=== PATIENT | female | born 1950 | race Caucasian/White ===

== ENCOUNTER 2016-07-21 12:40 | Emergency (ER) | payer OTHER ==
[~2016-07-21] VITALS: Ht 162.6 cm; Wt 90.7 kg
[~2016-07-21 12:40] MED LIST: CYMBALTA20 MG PO; IBUPROFEN600 MG ORAL; NKM; NORCO 5-325 TA1 EACH ORAL; PREMARIN0.625 MG ORAL; RISPERDAL1 MG PO; RISPERDAL1 MG/1 ML PO; VICODIN 5-5001 EACH PO; [UNRECOGNIZED DRUG - OTHER] PO; premarin
[2016-07-21 12:45] VITALS: BP 126/74
[2016-07-21] MEDS ORDERED: CYMBALTA60 MG ORAL (12:51)
[2016-07-21] MEDS ORDERED: GABAPENTIN100 MG ORAL (12:51)
[2016-07-21] MEDS ORDERED: Lidocaine 2% Visc 15ml soln ORAL ONE (13:30)
--- NOTE | 2016-07-21 13:43 | Emergency Room Report ---
History of Present Illness General Chief Complaint: Sore Throat Source: Patient (Kristin Moulton) Present Illness HPI 66-year-old female presents to emergency Department complaining of 10/10 in severity sore throat and abdominal discomfort status post endoscopy yesterday. Patient describes her pain as burning and discomfort. Patient denies blood in the sputum or black tarry stools. Patient that she recently was diagnosed with hiatal hernia and denies taking medications for acid reflux. Patient states that prior she was taking only omeprazole with mild relief. Patient denies difficulty breathing or painful inspirations. Denies CP, Palpitations, LOC, AMS , dizziness, Changes in Vision, Sensation, paresthesias, or a sudden severe headache. (Kristin Moulton) Allergies: Coded Allergies: SULFA (SULFONAMIDE ANTIBIOTICS) (Verified Allergy, Intermediate, rash, ) Patient History Past Medical History: see triage record Past Surgical History: none Pertinent Family History: none Immunizations: UTD Reviewed Nursing Documentation: PMH: Agreed, PSxH: Agreed (Kristin Moulton) Nursing Documentation-PMH Past Medical History: No History, Except For Hx Cardiac Problems: No - Herpes Hx Asthma: Yes Hx COPD: Yes Hx Cancer: Yes - SKIN BASAL CELL IN FACE Hx Gastrointestinal Problems: Yes - GERD Hx Neurological Problems: No (Kristin Moulton) Review of Systems All Other Systems: negative except mentioned in HPI (Kristin Moulton) Physical Exam Vital Signs Date Time Temp Pulse Resp B/P Pulse Ox O2 Delivery O2 Flow Rate FiO2 07/21/16 12:45 98.6 85 16 126/74 99 Room Air Sp02 EP Interpretation: reviewed, normal General Appearance: no apparent distress, alert, GCS 15, non-toxic Head: normocephalic, atraumatic Eyes: bilateral eye PERRL, bilateral eye normal inspection ENT: hearing grossly normal, normal pharynx, no angioedema, normal voice Neck: full range of motion, supple/symm/no masses Respiratory: chest non-tender, lungs clear, normal breath sounds, speaking full sentences Cardiovascular #1: regular rate, rhythm, no edema Gastrointestinal: normal bowel sounds, non tender, soft, no guarding, no rebound Rectal: deferred Genitourinary: normal inspection, no CVA tenderness Musculoskeletal: back normal, gait/station normal, normal range of motion, non- tender, no calf tenderness Neurologic: alert, oriented x3, responsive, motor strength/tone normal, sensory intact, speech normal Psychiatric: judgement/insight normal, memory normal, mood/affect normal, no suicidal/homicidal ideation Skin: normal color, no rash, warm/dry, well hydrated Lymphatic: no adenopathy (Kristin Moulton) Medical Decision Making MD Attestation Dr. jarquin is my supervising Physician whom patient management has been discussed with. (Kristin Moulton) Medicare Attestation The history of Souleymane Sanches has been reviewed and management options for her have been examined and discussed by Keyur Ladd. I have personally examined and interviewed the patient. (KEYUR LADD M.D.) Diagnostic Impression: Primary Impression: Hiatal hernia with GERD and esophagitis ER Course 66-year-old female presents to emergency Department complaining of 10/10 in severity sore throat and abdominal discomfort status post endoscopy yesterday. Patient describes her pain as burning and discomfort. Patient denies blood in the sputum or black tarry stools. Patient that she recently was diagnosed with hiatal hernia and denies taking medications for acid reflux. Patient states that prior she was taking only omeprazole with mild relief. Patient denies difficulty breathing or painful inspirations Ddx considered but are not limited to pneumomediastinum, perforation, GERD, SE of procedure. Vital signs: are WNL, pt. is afebrile H&PE are most consistent with GERD and Hiatal hernia with discomfort s/p endoscopy ORDERS: -- CXR: no evidence of pneumomediastinum, No consolidation, effusion, pneumothorax or acute cardiopulmonary findings per soft read in ED by Dr. Ladd ED INTERVENTIONS: -Viscous Lidocaine 10mg -150mg Zantac DISCHARGE: At this time pt. is stable for d/c to home. Will provide printed patient care instructions, and any necessary prescriptions. Care plan and follow up instructions have been discussed with the patient prior to discharge. (Kristin Moulton) Last Vital Signs Date Time Temp Pulse Resp B/P Pulse Ox O2 Delivery O2 Flow Rate FiO2 07/21/16 12:45 98.6 85 16 126/74 99 Room Air (Kristin Moulton) Disposition: HOME, SELF-CARE Condition: Stable Scripts Ranitidine Hcl* (ZANTAC*) 150 Mg Tablet 150 MG ORAL TWICE A DAY for 30 Days, #60 TAB Prov: Kristin Moulton 07/21/16 Lidocaine HCl (Lidocaine HCl Viscous) 100 Ml Solution 15 ML PO TID, #200 ML Prov: Kristin Moulton 07/21/16 Patient Instructions: Food Choices for Gastroesophageal Reflux Disease, Adult, [id number], Hiatal Hernia Additional Instructions: Take medications as directed. Follow up with PCP in 3-5 days Return sooner to ED if new symptoms occur, or current symptoms become worse. - Please note that this Emergency Department Report was dictated using [employer] custodian technology software, occasionally this can lead to erroneous entry secondary to interpretation by the dictation equipment. Kristin Moulton Jul 21, 2016 13:43 KEYUR LADD M.D. Jul 22, 2016 08:21
[2016-07-21] MEDS ORDERED: ZANTAC150 MG ORAL (13:46)
[2016-07-21] MEDS ORDERED: LIDOCAINE VISCO20 ML PO (13:46)
[2016-07-21 14:00] VITALS: BP 118/67
--- NOTE | 2016-07-22 10:00 | Diagnostic Imaging Report ---
Indication: Chest pain Technique: XRAY CHEST 1 V Comparison: None Findings: Cardiac silhouette is prominent. There is no consolidation. Mild linear opacities are noted of the mid and basilar lung rivera. Chronic appearing left-sided rib fracture deformities are present. Degenerative changes of the spine are seen. Impression: Mild linear opacities of the mid and lower lung rivera could represent atelectasis. Clinical correlation/followup recommended. Other findings as above.
== END 2016-07-21 14:04 | disposition home or self-care (01) ==
LOC: EMR 13:00
DX: K44.9 Diaphragmatic hernia without obstruction or gangrene (principal); K21.0 Gastro-esophageal reflux disease with esophagitis
CPT/HCPCS: 71010; 99283

== ENCOUNTER 2016-08-19 14:57 | Emergency (ER) | payer MEDICARE, OTHER ==
[~2016-08-19] VITALS: Ht 160 cm; Wt 48.5 kg
[~2016-08-19 14:57] MED LIST changes: +CYMBALTA60 MG ORAL; +GABAPENTIN100 MG ORAL; +LIDOCAINE VISCO20 ML PO; +ZANTAC150 MG ORAL
[2016-08-19 15:45] VITALS: BP 120/61
[2016-08-19] MEDS ORDERED: Albuterol ud Inhalation HHN ONE (15:45)
[2016-08-19] MEDS ORDERED: Ipratropium 0.02% Inh Soln 2.5ml UD HHN ONE (15:45)
[2016-08-19] MEDS ORDERED: ZITHROMAX250 MG ORAL (17:32)
[2016-08-19] MEDS ORDERED: PROMETHAZINE-D118 ML ORAL (17:32)
[2016-08-19] MEDS ORDERED: PROAIR HFA8.5 GM INH (17:32)
[2016-08-19] MEDS ORDERED: PREDNISONE20 MG ORAL (17:33)
[2016-08-19 17:38] VITALS: BP 123/70
--- NOTE | 2016-08-19 21:26 | Emergency Room Report ---
History of Present Illness General Chief Complaint: Upper Respiratory Illness Source: Patient Present Illness [facility] The patient is a 66-year-old female presenting for cough and sore throat for the past week. The patient states she has a history of chronic bronchitis and a history of smoking. She describes pain as a 5-10 dull ache and is worse with coughing. Patient does admit to subjective fevers and chills. the patient denies any sick contacts or recent travel. The patient has been using albuterol at home which does help. 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 Hx Gastrointestinal Problems: Yes - GERD Hx Neurological Problems: No Review of Systems All Other Systems: negative except mentioned in HPI Physical Exam Vital Signs Date Time Temp Pulse Resp B/P Pulse Ox O2 Delivery O2 Flow Rate FiO2 08/19/16 15:33 97.9 87 16 128/65 100 Room Air Sp02 EP Interpretation: reviewed, normal General Appearance: no apparent distress, alert, GCS 15, non-toxic Head: normocephalic, atraumatic Eyes: bilateral eye PERRL, bilateral eye normal inspection ENT: hearing grossly normal, normal pharynx, no angioedema, normal voice, uvula midline Neck: full range of motion, supple/symm/no masses Respiratory: no respiratory distress, no accessory muscle use, wheezing - bilat Cardiovascular #1: regular rate, rhythm, no edema Genitourinary: normal inspection, no CVA tenderness Musculoskeletal: back normal, gait/station normal, normal range of motion, non- tender Neurologic: alert, oriented x3, responsive, motor strength/tone normal, sensory intact, speech normal Psychiatric: judgement/insight normal, memory normal, mood/affect normal, no suicidal/homicidal ideation Skin: normal color, no rash, warm/dry, well hydrated Lymphatic: no adenopathy Medical Decision Making PA Attestation Dr. Sahni is my supervising physician. Patient management was discussed with my supervising physician Diagnostic Impression: Primary Impression: Bronchitis ER Course The patient is a 66-year-old female presenting for cough and sore throat for the past week Differential diagnosis include but not limited to pharyngitis, sinusitis, AOM, bronchitis, PNA PE: No apparent distress. No TTP over maxillary or frontal sinuses. Lungs: + bilat wheezing. No accessory muscle use. Heart: RRR, no abnormal heart sounds Ears: external auditory canal clear. Non erythematous. Bilat TM intact. Cone of light present bilat. No bulging of TM. No serous fluid seen. no nasal D/C no anterior cervical lymphad No tonsillar exudate. Uvula midline.Oropharynx non erythematous The patient is given a breathing treatment and Decadron and is feeling better. CXR shows RLL possible atelectasis vs effusion The patient will be discharged home with a prescription for azithromycin, albuterol, prednisone and cough medication. ER precautions given Chest X-Ray Diagnostic Results EP Interpretation: Yes Findings: no pneumothorax, other - RLL atelectasis vs effusion Number of Views: 1 PA Scribe Text I am acting as scribe for my supervising physician. My supervising physician's interpretation of the chest xrays are there is RLL atelectasis vs effusion. Last Vital Signs Date Time Temp Pulse Resp B/P Pulse Ox O2 Delivery O2 Flow Rate FiO2 08/19/16 16:20 79 18 100 Room Air 08/19/16 15:33 97.9 128/65 Status: improved Disposition: HOME, SELF-CARE Condition: Improved Scripts Prednisone* (PREDNISONE*) 20 Mg Tablet 20 MG ORAL DAILY, #5 TAB 0 Refills Prov: TERZIAN,DEMAR P.A. 08/19/16 D-Methorphan Hb/Prometh Hcl* (PROMETHAZINE-DM SYRUP*) 118 Ml Syrup 5 ML ORAL Q6H Y for For Cough, #118 ML 0 Refills Prov: TERZIAN,DEMAR P.A. 08/19/16 Albuterol Sulfate* (PROAIR HFA*) 8.5 Gm Hfa.aer.ad 2 PUFFS INH Q6H, #8.5 GM 0 Refills Prov: TERZIAN,DEMAR P.A. 08/19/16 Azithromycin* (ZITHROMAX*) 250 Mg Tablet 250 MG ORAL DAILY, #6 TAB 0 Refills Take two tables once daily for 1 day, then one tablet once daily for 4 days. Prov: DEMAR ALEXANDER 08/19/16 Referrals: [facility],REFERRING (PCP) Patient Instructions: Acute Bronchitis Additional Instructions: I discussed my findings with the patient. All questions and concerns have been answered. Treatment and medication compliance have been addressed. I advised the patient that they need to follow up with PMD in 3-5 days. Return to ED if pain remains or worsens, cough worsens or remains, you notice blood in your sputum, you notice wheezing, you experience a fever, or if needed for any reason. Patient verbalized understanding of discharge instructions. DEMAR ALEXANDER Aug 19, 2016 21:26
--- NOTE | 2016-08-20 12:19 | Diagnostic Imaging Report ---
Indication: COUGH Technique: One view of the chest Comparison: 07/21/2016 Findings: Lungs and pleural spaces are clear. Heart size is upper limits of normal. Aorta is elongated. When compared to the prior study, previously demonstrated atelectatic changes are no longer evident Impression: No acute process
== END 2016-08-19 17:38 | disposition home or self-care (01) ==
LOC: EMR 15:55
DX: J40 Bronchitis, not specified as acute or chronic (principal); J44.9 Chronic obstructive pulmonary disease, unspecified; Z85.828 Personal history of other malignant neoplasm of skin; K21.9 Gastro-esophageal reflux disease without esophagitis; Z88.2 Allergy status to sulfonamides
CPT/HCPCS: 71010; 94640; 94664; 99284; J8540

== ENCOUNTER 2016-10-21 10:37 | Emergency (ER) | payer MEDICARE, OTHER ==
[~2016-10-21] VITALS: Ht 160 cm; Wt 88.5 kg
[~2016-10-21 10:37] MED LIST changes: +PREDNISONE20 MG ORAL; +PROAIR HFA8.5 GM INH; +PROMETHAZINE-D118 ML ORAL; +ZITHROMAX250 MG ORAL
[2016-10-21 10:44] VITALS: BP 113/65
--- NOTE | 2016-10-21 11:51 | Emergency Room Report ---
History of Present Illness General Chief Complaint: Lower Extremity Injury Source: Patient Present Illness HPI [id number] walk-in with pain to right little toe after "stubbing it" barefoot 2 days ago after "some drinking." Able to ambulate. No previous foot/toe injury. 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 Hx Gastrointestinal Problems: Yes - GERD Hx Neurological Problems: No Review of Systems All Other Systems: negative except mentioned in HPI Physical Exam Vital Signs Date Time Temp Pulse Resp B/P Pulse Ox O2 Delivery O2 Flow Rate FiO2 10/21/16 10:44 96.3 73 16 113/65 93 Room Air Sp02 EP Interpretation: reviewed, normal General Appearance: normal inspection, well appearing, no apparent distress, alert Head: normocephalic, atraumatic ENT: normal ENT inspection, hearing grossly normal, normal voice Neck: normal inspection, full range of motion, supple, no bony tend Respiratory: normal inspection, lungs clear, normal breath sounds, no respiratory distress, no retraction, no wheezing Cardiovascular #1: regular rate, rhythm, no edema Gastrointestinal: normal inspection, normal bowel sounds, non tender, soft, no guarding, no hernia Genitourinary: no CVA tenderness Musculoskeletal: other - right fifth foot: mild swelling to PIP. Sensation intact. No obvious deformity, Neurologic: normal inspection, alert, oriented x3, responsive, it integration architect III-XII nml as tested, motor strength/tone normal, speech normal Psychiatric: normal inspection, judgement/insight normal, mood/affect normal Skin: normal inspection, normal color, no rash Medical Decision Making Diagnostic Impression: Primary Impression: Broken toe Qualified Codes: S92.514A - Nondisplaced fracture of proximal phalanx of right lesser toe(s), initial encounter for closed fracture ER Course Right 5th toe PIP fx Shazia taped Thick sole shoe provided advised ICE, OTC tylenol, Ortho followup DC home Other X-Ray Diagnostic Results Other X-Ray Diagnostic Results : X-Ray Ordered: Right foot EP Interpretation: Yes Findings: no dislocation, no soft tissue swelling, other - PIP Number of Views: 3 Last Vital Signs Date Time Temp Pulse Resp B/P Pulse Ox O2 Delivery O2 Flow Rate FiO2 10/21/16 10:44 96.3 73 16 113/65 93 Room Air Status: improved Disposition: HOME, SELF-CARE Condition: Improved Patient Instructions: Toe Fracture, [id number] Additional Instructions: - Ice toe 3-4x a day to reduce pain, swelling - Keep shazia taped to 4th toe - If ambulating, use thick-soled shoe/boot - Ask your primary care doctor for Orthopedics referral in 1 week KULDIP ZAPATA M.D. Oct 21, 2016 11:51
--- NOTE | 2016-10-21 12:43 | Diagnostic Imaging Report ---
Indication: Pain Comparison: None Findings: 3 views right fifth toe obtained. Intra-articular fracture involving the fifth proximal interphalangeal joint and the head of the proximal fifth phalange noted. Impression: Acute intra-articular fracture fifth proximal phalange
== END 2016-10-21 12:00 | disposition home or self-care (01) ==
LOC: EMR 11:20
DX: S92.514A Nondisplaced fracture of proximal phalanx of right lesser toe(s), initial encounter for closed fracture (principal); W22.8XXA Striking against or struck by other objects, initial encounter; Y93.9 Activity, unspecified; Y92.9 Unspecified place or not applicable; Z88.2 Allergy status to sulfonamides; J44.9 Chronic obstructive pulmonary disease, unspecified; J45.909 Unspecified asthma, uncomplicated; Z85.9 Personal history of malignant neoplasm, unspecified; K21.9 Gastro-esophageal reflux disease without esophagitis
CPT/HCPCS: 29540; 99283

== ENCOUNTER 2016-11-12 10:40 | Emergency (ER) | payer MEDICARE, OTHER ==
[~2016-11-12] VITALS: Ht 160 cm; Wt 89.8 kg
[2016-11-12 10:55] VITALS: BP 116/65
[2016-11-12] MEDS ORDERED: Norco 5mg/325mg tab PO ONE (11:00)
[2016-11-12] MEDS ORDERED: Tetanus/Diptheria/Pertussis Vaccine 0.5ml Syr IM ONE (11:00)
[2016-11-12] MEDS ORDERED: Neosporin Oint Ud Pkt TOP ONE (11:00)
--- NOTE | 2016-11-12 11:03 | Emergency Room Report ---
History of Present Illness General Chief Complaint: Pain Source: Patient Present Illness HPI The patient slipped on a wet kitchen floor and hit her knee and twisted her foot on the right side. In addition to that she landed on her rear. There is no loss of consciousness. She doesn't take any medication for this had pain with walking. There is no numbness. Her last tetanus is greater than 10 years. She had a recent skin cancer biopsy on the left leg. Pain is 6/10. She was told she had toe fractures here. No blood thinners. No neck pain. No URI sy, chest pain, palpitations. No dysuria. 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 Hx Gastrointestinal Problems: Yes - GERD Hx Neurological Problems: No Review of Systems All Other Systems: negative except mentioned in HPI Physical Exam Vital Signs Date Time Temp Pulse Resp B/P Pulse Ox O2 Delivery O2 Flow Rate FiO2 11/12/16 10:45 97.9 90 15 116/65 94 Room Air Sp02 EP Interpretation: reviewed, normal, abnormal - slightly low as interpreted by me General Appearance: well appearing, no apparent distress Head: normocephalic, atraumatic Eyes: bilateral eye PERRL, bilateral eye normal inspection ENT: hearing grossly normal, normal voice, moist mucus membranes Neck: full range of motion, supple Respiratory: chest non-tender, no respiratory distress, speaking full sentences Cardiovascular #1: regular rate, rhythm Cardiovascular #2: 2+ dorsalis pedis (R), 2+ dorsalis pedis (L) Gastrointestinal: normal bowel sounds, non tender Musculoskeletal: pelvis stable, other - shazia tape of toes. Dorsum of mexican food machine tender, no ankle tenderness or 5th MT. Knee ligaments stable. No drawer/ applies. Hip FROM with tenderness of blueal area. No bone tenderness of spine Neurologic: alert, oriented x3, motor strength/tone normal, DTRs symmetric, sensory intact, normal gait Psychiatric: mood/affect normal Skin: other - abrasions extremities - min erythema near biopsy area Medical Decision Making Diagnostic Impression: Primary Impression: Contusion Qualified Codes: S80.11XA - Contusion of right lower leg, initial encounter Additional Impression: History of recent fall ER Course Patient post non-syncopal fall with pain in foot and knee. Ddx: fx, contusion, sprain. Ligaments intact. Xrays indicated. Analgesia ordered. Tetanus upgraded. Xrays with DJD. I do not see prior toe or any fx. Improved with treatment. Chris applied by [employer], position excellent. Neurovasc checked by me and normal. Improved. Patient stable for outpatient observation and treatment. Other X-Ray Diagnostic Results X-Ray ordered: R foot (3 views), R knee (3 views) # of Views/Limited Vs Complete: Complete EP Interpretation: Yes Interpretation: no fractures, no dislocation, other - STS Indication: Pain Impression: No acute disease Last Vital Signs Date Time Temp Pulse Resp B/P Pulse Ox O2 Delivery O2 Flow Rate FiO2 11/12/16 12:03 77 14 127/81 97 Room Air 11/12/16 10:55 97.9 Status: improved Disposition: HOME, SELF-CARE Condition: Improved Scripts Bacitracin (Bacitracin) 28.4 Gm Oint...g. 1 APPLIC TOPIC BID, #10 GM Prov: Derik Blevins M.D. 11/12/16 Ibuprofen* (MOTRIN*) 600 Mg Tablet 600 MG ORAL Q6H Y for For Pain, #20 TAB Prov: Derik Blevins M.D. 11/12/16 Hydrocodone Bit/Acetaminophen 5-325* (NORCO 5-325 TABLET*) 1 Each Tablet 1 TAB ORAL Q4H Y for For Pain, #10 TAB Prov: Derik Blevins M.D. 11/12/16 Derik Blevins M.D. Nov 12, 2016 11:03
[2016-11-12] MEDS ORDERED: IBUPROFEN600 MG ORAL (11:52)
[2016-11-12] MEDS ORDERED: NORCO 5-325 TA1 EAC1 ORAL (11:52)
[2016-11-12] MEDS ORDERED: BACITRACIN15 GM TOPIC (11:52)
[2016-11-12 12:03] VITALS: BP 127/81
--- NOTE | 2016-11-12 12:05 | Diagnostic Imaging Report ---
Indication: TRAUMA Technique: 3 views of the right knee Comparison: None Findings:No suprapatellar effusion. There are degenerative proliferative changes as well as medial compartment moderate degenerative joint space narrowing. No acute fractures. No dislocations. Impression:Degenerative changes, as described No acute bony trauma
--- NOTE | 2016-11-12 12:07 | Diagnostic Imaging Report ---
Indication: TRAUMA, pain, status post fall Technique: 3 views right foot Comparison: none Findings: There is hallux valgus and bunion formation. No acute fractures. No dislocations. The joint spaces are preserved. There is surgical hardware in the distal fibula. There is a small calcaneal spur Impression: Postsurgical and posttraumatic changes, as described No acute bony trauma Deformities as described
== END 2016-11-12 12:03 | disposition home or self-care (01) ==
LOC: EMR 11:50
DX: S80.11XA Contusion of right lower leg, initial encounter (principal); Z23 Encounter for immunization; Z88.2 Allergy status to sulfonamides; F17.210 Nicotine dependence, cigarettes, uncomplicated; J45.909 Unspecified asthma, uncomplicated; J44.9 Chronic obstructive pulmonary disease, unspecified; K21.9 Gastro-esophageal reflux disease without esophagitis; Z85.828 Personal history of other malignant neoplasm of skin; W01.0XXA Fall on same level from slipping, tripping and stumbling without subsequent striking against object, initial encounter; Y92.9 Unspecified place or not applicable
CPT/HCPCS: 29540; 90471; 90715; 96372; 99284

== ENCOUNTER 2018-06-05 12:58 | Emergency (ER) | payer MEDICARE, OTHER ==
[~2018-06-05] VITALS: Ht 160 cm; Wt 86.6 kg
[~2018-06-05 12:58] MED LIST changes: +BACITRACIN15 GM TOPIC; +NORCO 5-325 TA1 EAC1 ORAL
--- NOTE | 2018-06-05 14:39 | Emergency Room Report ---
History of Present Illness General Chief Complaint: Lower Extremity Injury Source: Patient (Jose Jordan) Present Illness HPI 68-year-old female patient presents the ER complaining of "my right knee blew out". Reports 2 days ago she began to experience symptoms while walking. Complaining of pain in right knee, reports pain with ambulation. Denies hearing a snap or a pop sensation. Denies history of knee surgery. Reports history of osteoarthritis in her right knee. States has had x-ray imaging done over a year ago. Denies other acute aggravating or relieving symptoms. Denies acute injury or trauma. 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 Hx Gastrointestinal Problems: Yes - GERD Hx Neurological Problems: No (Jose Jordan) Review of Systems All Other Systems: negative except mentioned in HPI (Jose Jordan) Physical Exam Vital Signs Date Time Temp Pulse Resp B/P (MAP) Pulse Ox O2 Delivery O2 Flow Rate FiO2 06/05/18 13:26 98.2 86 18 106/70 98 Room Air Sp02 EP Interpretation: reviewed, normal General Appearance: well appearing, no apparent distress, alert, GCS 15, non- toxic Head: normocephalic, atraumatic Eyes: bilateral eye normal inspection, bilateral eye PERRL ENT: hearing grossly normal, normal pharynx, no angioedema, normal voice, uvula midline, moist mucus membranes Neck: full range of motion Respiratory: lungs clear, normal breath sounds, no rhonchi, no respiratory distress, no accessory muscle use, no wheezing, speaking full sentences Cardiovascular #1: regular rate, rhythm, no edema Cardiovascular #2: 2+ dorsalis pedis (R), 2+ dorsalis pedis (L) Musculoskeletal: back normal, digits/nails normal, gait/station normal, normal range of motion, no calf tenderness, Tahira's Sign negative, other - NVI, no ecchymosis, no swelling, no warmth to touch, no erythema, negative syndesmotic squeeze test, no laxity with varus or valgus stress, negative anterior and posterior drawer test, tender - Right knee Neurologic: alert, oriented x3, responsive, motor strength/tone normal, sensory intact Psychiatric: mood/affect normal Skin: no rash Lymphatic: no adenopathy (Jose Jordan) Medical Decision Making PA Attestation Dr. Blevins is my supervising Physician whom patient management has been discussed with. (Jose Jordan) Diagnostic Impression: Primary Impression: Left knee pain Additional Impression: Hx of osteoarthritis ER Course Pt. presents to the ED c/o right knee pain times 2 days. Ddx considered but are not limited to fracture, sprain, strain, contusion, dislocation. No erythema, no warmth to touch, no fever, nontoxic appearing, low suspicion for septic joint. Soft compartments, no pulselessness, no pallor, no paresthesias, low suspicion for compartment syndrome at this time. Vital signs: are WNL, pt. is afebrile Ordered X-ray and pain medication. ER COURSE Provided with pain medication. An X-ray of the no acute disease per the preliminary reading, decreased joint space, likely due to osteoarthritis. Advised patient on need for MRI. Patient presented the ER wearing Chris wrap, does not require splinting at this time. Patient currently ambulating with a cane, declines need for crutches. Patient instructed on RICE method: rest, ice, compression, elevation. Patient instructed on rest, ice and heat. Patient instructed to be WBAT Contact information for orthopedic urgent care provided, follow-up with urgent care if unable to followup with primary care provider and get referral to orthopedic technician. Followup with primary care provider. Discuss referral to ortho/pain management/ PT as needed. Discuss further imaging with MRI/CT as needed. Provide patient with Ultram. Patient monitored while taking medication. Patient discharged to care of take patient home. ER precautions given. DISCHARGE: At this time pt. is stable for d/c to home. Patient is resting comfortably, in no acute distress, nontoxic appearing, talking without difficulty. Will provide printed patient care instructions, and any necessary prescriptions. Patient instructed to follow with primary care provider in 3 - 5 days and to request further follow-up as needed. Care plan and follow up instructions have been discussed with the patient prior to discharge. Take medications as directed. Patient questions asked and answered. Patient reports understanding and agreement to treatment plan. ER precautions given, patient instructed to return to ER immediately for any new or worsening of symptoms. - Please note that this Emergency Department Report was dictated using [employer] sales manager technology software, occasionally this can lead to erroneous entry secondary to interpretation by the dictation equipment. (Jose Jordan) Other X-Ray Diagnostic Results Other X-Ray Diagnostic Results : X-Ray ordered: Right knee # of Views/Limited Vs Complete: 3 View Indication: Pain EP Interpretation: Yes PA Xray: Interpretation reviewed, by supervising MD, and agrees with findings. Interpretation: no dislocation, no soft tissue swelling, no fractures, other - Narrow joint space Impression: No acute disease PA Scribe Text Breezy Jordan PA-C (Jose Jordan) Other X-Ray Diagnostic Results : Electronically Signed by: Jonatan Sellers documentation of Xray reviewed by me and is accurate, Derik Blevins MD (Derik Blevins MD) Last Vital Signs Date Time Temp Pulse Resp B/P (MAP) Pulse Ox O2 Delivery O2 Flow Rate FiO2 06/05/18 13:26 98.2 86 18 106/70 98 Room Air Status: improved (Jose Jordan) Disposition: HOME, SELF-CARE Condition: Stable Scripts Acetaminophen* (TYLENOL EXTRA STRENGTH*) 500 Mg Tablet 500 MG ORAL Q8H PRN for Prn Headache/Temp > 101, #30 TAB 0 Refills Prov: Jose Jordan 06/05/18 Referrals: [facility],REFERRING (PCP) Patient Instructions: Knee Sprain Additional Instructions: Patient instructed to follow up with primary care provider and discuss further referral to orthopedics/physical therapy/pain management as needed. If unable to followup with PCP, followup with orthopedic urgent care in 5-7 days , call to schedule appointment. Patient instructed on RICE method: rest, ice, compression, elevation. Patient instructed to WBAT. Take medications as directed. Patient questions asked and answered. ER precautions given, patient instructed to return to ER immediately for any new or worsening of symptoms. [facility] [address] [address] [facility], [address] [email or web address] Jose Jordan Jun 05, 2018 14:39 Derik Blevins MD Jun 07, 2018 01:58
--- NOTE | 2018-06-05 14:50 | NUR ---
ED Nurse Note: Pt. AAOx4. ambulatory. pt. stated she blew my right knee out two days ago. able to weight bear with pain. utilizing cane
--- NOTE | 2018-06-05 15:30 | NUR ---
ED Nurse Note: pt. went to xray
--- NOTE | 2018-06-05 15:42 | NUR ---
ED Nurse Note: pt. came back from radiology
[2018-06-05] MEDS ORDERED: traMADol 50mg tab ORAL ONE (16:00)
[2018-06-05] MEDS ORDERED: TYLENOL EXTRA500 MG ORAL (16:02)
--- NOTE | 2018-06-05 16:04 | Diagnostic Imaging Report ---
Indication: Pain Knee pain/trauma 3 views of the right knee were obtained. Findings: No acute fracture, malalignment, or joint effusion are identified. Joint space narrowing demonstrated. There is vacuum phenomena in the medial compartment. Large osteophytes are present. There is moderate osteopenia noted. IMPRESSION: No acute injury appreciated. Osteoarthritis
[2018-06-05 16:18] VITALS: BP 106/70
--- NOTE | 2018-06-05 16:28 | NUR ---
ED Nurse Note: Pt. AAOx4. ambulatory. left with steady gait. Pt. education done regarding d/c papers. Pt. verbalized the understanding of the teaching. Left with all his belongings.
== END 2018-06-05 16:28 | disposition home or self-care (01) ==
LOC: EMR 13:35
DX: M17.11 Unilateral primary osteoarthritis, right knee (principal); K21.9 Gastro-esophageal reflux disease without esophagitis; J44.9 Chronic obstructive pulmonary disease, unspecified; Z85.828 Personal history of other malignant neoplasm of skin
CPT/HCPCS: 99283

== ENCOUNTER 2019-04-17 10:57 | Emergency (ER) | payer MEDICARE, OTHER ==
[~2019-04-17] VITALS: Ht 160 cm; Wt 80.3 kg
[~2019-04-17 10:57] MED LIST changes: +TYLENOL EXTRA500 MG ORAL
[2019-04-17] MEDS ORDERED: SYNTHROID137 MCG ORAL (11:05)
[2019-04-17] MEDS ORDERED: GLUCOPHAGE1000 MG ORAL (11:05)
[2019-04-17 11:10] VITALS: BP 108/74
--- NOTE | 2019-04-17 11:10 | NUR ---
ED Nurse Note: pt walked in to ED due to pain on left lower leg for last 2 yrs. pt has skin cancer on that site and follow up with oncologist. per pt, due to insurance change, stop follow throbbing pain gets worse. seen by wine blender yesterday, he recommended to go to ED for eval for blood clot. no discharge noted. local heat and redness noted. ambulatory with steady gait. AAO x4. respirations even and non-labored noted. will wait for the further order.
[2019-04-17] MEDS ORDERED: AUGMENTIN 875-1 EAC1 ORAL (11:43)
[2019-04-17 11:51] VITALS: BP 108/74
--- NOTE | 2019-04-17 11:53 | NUR ---
DISCHARGED HOME WITH INSTRUCTION AND RX FOLLOW UP WITH PMD. PATIENT VERBALIZE UNDERSTANDING THE ACI AND NEED FOR FOLLOW UP
--- NOTE | 2019-04-17 14:06 | Emergency Room Report ---
History of Present Illness General Chief Complaint: Pain Source: Patient Present Illness HPI 69-year-old female presents ED for evaluation. Patient complaining of redness and pain to her left leg. States that she was diagnosed with a basal squamous cell carcinoma and has been subsequently treated. Patient states that she had received different treatments to that area. States that there was an infection and was prescribed antibiotics by a skip hoist engineer. States that she still has redness and pain to that area. States there was discharge initially. Pain is throbbing, 7 out of 10, nonradiating. Denies fevers or chills. Denies calf swelling. No other aggravating relieving factors. Denies any other associated symptoms Allergies: Coded Allergies: SULFA (SULFONAMIDE ANTIBIOTICS) (Verified Allergy, Intermediate, rash, ) Patient History Past Medical History: asthma, COPD, GERD, other - basal cell carcinoma on leg Past Surgical History: none Pertinent Family History: none Social History: Denies: smoking, alcohol use, drug use Now: No Immunizations: UTD Reviewed Nursing Documentation: PMH: Agreed; PSxH: Agreed Nursing Documentation-PMH Hx Asthma: Yes Hx COPD: Yes Hx Diabetes: Yes - HYPOTHYROIDISM Hx Cancer: Yes - SKIN BASAL CELL Hx Gastrointestinal Problems: Yes - GERD Hx Neurological Problems: No Review of Systems All Other Systems: negative except mentioned in HPI Physical Exam Vital Signs Date Time Temp Pulse Resp B/P (MAP) Pulse Ox O2 Delivery O2 Flow Rate FiO2 04/17/19 11:00 97.9 94 18 108/74 (85) 94 Room Air Sp02 EP Interpretation: reviewed, normal General Appearance: no apparent distress, alert, GCS 15, non-toxic Head: normocephalic Eyes: bilateral eye normal inspection, bilateral eye PERRL ENT: normal ENT inspection Neck: normal inspection Respiratory: normal inspection Cardiovascular #1: normal inspection Gastrointestinal: normal inspection Rectal: deferred Genitourinary: no CVA tenderness Musculoskeletal: back normal Neurologic: alert, motor strength/tone normal, oriented x3, sensory intact, responsive, speech normal Psychiatric: normal inspection Skin: other - erythema/induration to LLE. central pustular area. no fluctuance or discharge Lymphatic: normal inspection Medical Decision Making Diagnostic Impression: Primary Impression: Cellulitis of lower extremity Qualified Codes: L03.116 - Cellulitis of left lower limb ER Course Hospital Course 69-year-old female presents to ED with redness, pain to LLE Differential diagnoses include: Cellulitis, dermatitis, insect bite, abscess Clinical course Patient placed on stretcher. After initial history, physical exam reveals an elderly female in no acute distress. On exam there is a for mild erythema and induration to the left lower extremity. There is no fluctuance. there is mild tenderness. there is a central pustular area. no fluctuance or discharge I discussed findings with the patient. Patient appears nontoxic, vitals stable. not amenable to I&D at this time. Patient was concerned about "blood clot". There is no calf tenderness or swelling. I reassured her that this presentation does not consistent with a blood clot. Had already been on one round of doxycycline. We will continue antibiotics at this time. Also provide referral for wound care. If symptoms do not improve she may need to return and be admitted for IV antibiotics Diagnosis - cellulitis of lower extremity stable and discharged to home with prescription for Augmentin. Instructed to followup with PMD. Instructed return to ED if symptoms recur or worsen Last Vital Signs Date Time Temp Pulse Resp B/P (MAP) Pulse Ox O2 Delivery O2 Flow Rate FiO2 04/17/19 11:51 97.9 94 18 108/74 94 Room Air Status: improved Disposition: HOME, SELF-CARE Condition: Stable Scripts Amoxicillin/Potassium Clav 875-125* (AUGMENTIN 875-125 TABLET*) 1 Each Tablet 1 TAB ORAL TWICE A DAY, #14 TAB Prov: Keyur Ladd MD 04/17/19 Referrals: [facility] PHYSICIAN (PCP) Patient Instructions: Cellulitis, [id number] Keyur Ladd MD Apr 17, 2019 14:06
== END 2019-04-17 11:54 | disposition home or self-care (01) ==
LOC: EMR 11:36
DX: L03.116 Cellulitis of left lower limb (principal); C44.719 Basal cell carcinoma of skin of left lower limb, including hip; J44.9 Chronic obstructive pulmonary disease, unspecified; E03.9 Hypothyroidism, unspecified; K21.9 Gastro-esophageal reflux disease without esophagitis; Z88.2 Allergy status to sulfonamides
CPT/HCPCS: 99282

== ENCOUNTER 2019-12-27 07:40 | Emergency (ER) | payer MEDICARE, OTHER ==
[~2019-12-27] VITALS: Ht 160 cm; Wt 89.4 kg
[~2019-12-27 07:40] MED LIST changes: +AUGMENTIN 875-1 EAC1 ORAL; +GLUCOPHAGE1000 MG ORAL; +SYNTHROID137 MCG ORAL
[2019-12-27 07:50] VITALS: BP 128/63
--- NOTE | 2019-12-27 07:54 | Emergency Room Report ---
History of Present Illness General Chief Complaint: To Be Triaged Source: Patient, Family Member - , Medical Record Present Illness HPI Patient is a 69-year-old female past medical history of COPD and diabetes who presents to the ER complaining of right thumb pain. Patient states that she tripped on stairs last night landing onto her right hand. She is right-hand dominant. She denies any head trauma or loss of consciousness. She denies taking any pain medicines today. Allergies: Coded Allergies: SULFA (SULFONAMIDE ANTIBIOTICS) (Verified Allergy, Intermediate, rash, ) Patient History Reviewed Nursing Documentation: PMH: Agreed; PSxH: Agreed Nursing Documentation-PMH Past Medical History: No History, Except For Hx Asthma: Yes Hx COPD: Yes Hx Diabetes: Yes - HYPOTHYROIDISM Hx Cancer: Yes - SKIN BASAL CELL Hx Gastrointestinal Problems: Yes - GERD Hx Neurological Problems: No Review of Systems All Other Systems: negative except mentioned in HPI Physical Exam Sp02 EP Interpretation: reviewed, normal General Appearance: no apparent distress, alert, GCS 15, non-toxic Head: normocephalic, atraumatic Eyes: bilateral eye normal inspection, bilateral eye PERRL ENT: hearing grossly normal, normal pharynx, no angioedema, normal voice Neck: full range of motion, supple/symm/no masses Respiratory: chest non-tender, speaking full sentences Cardiovascular #1: regular rate, rhythm, no edema Gastrointestinal: non tender, soft Rectal: deferred Musculoskeletal: other - Right thumb tenderness along PIP with mild swelling and snuffbox tenderness, cap refill normal, 2+ radial pulses, normal range of motion although tender when ranging Neurologic: floor coverings installer III-XII nml as tested, oriented x3 Psychiatric: no suicidal/homicidal ideation Skin: no rash Lymphatic: no adenopathy Medical Decision Making Diagnostic Impression: Primary Impression: Finger fracture, right ER Course X-ray demonstrates possible avulsion fracture. Patient also had snuffbox tenderness. Patient placed in thumb spica. Patient advised to follow-up with orthopedics within 1 week. After discussing risks and benefits of further diagnostics, treatment plans, as well as indications for and risks of admission , the patient is agreeable to being discharged home. I have explained that their evaluation and treatment in the emergency department today is an important step towards them achieving better health but that their evaluation today is not intended to replace further evaluation and treatment by a physician in their local clinic. I have explained that while the current findings suggest no immediate life threatening emergency they will require further evaluation and treatment by a physician of their choice in their area. They understand that it will be necessary for them to review the final reports of their ED visit with their clinic physician. We have reviewed indications for return to the Emergency Department. I have explained that additional time may need to pass and/or additional testing as an outpatient may be necessary before a definitive diagnosis can be made. They tell me they are willing to follow up as instructed within the timeframe I recommend. They appear to understand what we discussed. Additionally they understand that if they are unable to be seen by an outpatient physician they are welcome, and in fact should, return to the Emergency Department for a repeat evaluation. The patient is stable at time of discharge. Other X-Ray Diagnostic Results Other X-Ray Diagnostic Results : X-Ray ordered: Right fingers # of Views/Limited Vs Complete: 3 View Indication: Pain EP Interpretation: Yes Interpretation: no dislocation, other - No foreign body, avulsion fragment along the dorsal aspect of right first metacarpophalangeal joint Impression: Other - Avulsion injury Electronically Signed by: Chiqui Chaudhari MD Disposition: HOME, SELF-CARE Condition: Stable Scripts Tramadol Hcl* (ULTRAM*) 50 Mg Tablet 50 MG ORAL Q6H PRN for For Pain, #12 TAB 0 Refills Prov: Chiqui Chaudhari M.D. 12/27/19 Additional Instructions: The patient was provided with discharge instructions, notified to follow-up with a primary care doctor and or specialist in the next 24-48 hours, and to return to the ED if they have worsening of their symptoms. Please note that this report is being documented using [employer] technology. This can lead to erroneous entry secondary to incorrect interpretation by the dictating instrument. Chiqui Chaudhari M.D. Dec 27, 2019 07:54
--- NOTE | 2019-12-27 07:57 | NUR ---
ED Nurse Note: Pt from home and walked in due to right thumb injury. Pt tripped into a step and landed her right hand on a flower vase. Denies head injury but c/o right thumb pain. AAO x4, ambulatroy. Pt still able to move her right hand. No obvious fracture or deformity.
--- NOTE | 2019-12-27 07:58 | NUR ---
ED Nurse Note: Radiology came for xray.
[2019-12-27] MEDS ORDERED: Naproxen 500mg tab ORAL ONE (08:00)
--- NOTE | 2019-12-27 08:18 | Diagnostic Imaging Report ---
EXAM: XR Right Thumb, 3 Views CLINICAL HISTORY: TRAUMA TECHNIQUE: Frontal, lateral and oblique views of the right thumb. COMPARISON: No relevant prior studies available. FINDINGS: Generalized osteopenia. Irregular ossific fragment along the dorsal aspect of the right first metacarpophalangeal joint. Remainder of visualized bony structures are unremarkable. No radiopaque foreign body in the soft tissues. IMPRESSION: Age-indeterminate irregular ossific fragment along the dorsal aspect of the right first metacarpophalangeal joint. If there is point tenderness in this region, acute avulsion injury not excluded.
[2019-12-27] MEDS ORDERED: NAPROXEN375 M2 ORAL (08:20)
[2019-12-27] MEDS ORDERED: TRAMADOL HCL50 MG ORAL (08:26)
[2019-12-27 08:29] VITALS: BP 125/79
--- NOTE | 2019-12-27 08:29 | NUR ---
ER DISCHARGE NOTE: Patient is cleared to be discharged per ERMD, pt is aox4, on room air, with stable vital signs. pt was given dc and prescription instructions, pt was able to verbalize understanding, pt id band removed. pt is able to ambulate with steady gait. pt took all belongings.
== END 2019-12-27 08:29 | disposition home or self-care (01) ==
LOC: EMR 08:00
DX: S62.501A Fracture of unspecified phalanx of right thumb, initial encounter for closed fracture (principal); W01.0XXA Fall on same level from slipping, tripping and stumbling without subsequent striking against object, initial encounter; Y92.9 Unspecified place or not applicable; Z88.2 Allergy status to sulfonamides; J44.9 Chronic obstructive pulmonary disease, unspecified; E11.9 Type 2 diabetes mellitus without complications; E03.9 Hypothyroidism, unspecified; Z85.828 Personal history of other malignant neoplasm of skin; K21.9 Gastro-esophageal reflux disease without esophagitis
CPT/HCPCS: 99283

== ENCOUNTER 2020-01-30 08:26 | Emergency (ER) | payer MEDICARE, OTHER ==
[~2020-01-30] VITALS: Ht 160 cm; Wt 81.6 kg
[~2020-01-30 08:26] MED LIST changes: +NAPROXEN375 M2 ORAL; +TRAMADOL HCL50 MG ORAL
[2020-01-30] MEDS ORDERED: Fluconazole 150mg tab ORAL ONE (08:30)
[2020-01-30] MEDS ORDERED: NIZORAL 2% C1 APPLIC TOPIC (08:33)
[2020-01-30] MEDS ORDERED: BENADRYL25 M3 PO (08:33)
[2020-01-30] MEDS ORDERED: PREDNISONE20 MG ORAL (08:33)
--- NOTE | 2020-01-30 08:37 | Emergency Room Report ---
History of Present Illness General Chief Complaint: Skin Rash/Abscess Source: Patient, Medical Record Present Illness HPI Patient is a 69-year-old female who presents to the ER complaining of itchy rash for the past week. Patient states that it is been hot and she has been sweating a lot and has had a rash to her abdomen chest and bilateral arms. She denies any fever or chills. She denies any pain. She states that this is happened before. Patient states that she was given some sort of a rash cream by her primary care physician but that it has not helped. Allergies: Coded Allergies: SULFA (SULFONAMIDE ANTIBIOTICS) (Verified Allergy, Intermediate, rash, ) COVID-19 Screening Contact w/high risk pt: No Experienced COVID-19 symptoms?: No COVID-19 Testing performed HABITAT BIOLOGIST: No Patient History Now: No Reviewed Nursing Documentation: PMH: Agreed; PSxH: Agreed Nursing Documentation-PMH Hx Asthma: Yes Hx COPD: Yes Hx Diabetes: Yes - HYPOTHYROIDISM Hx Cancer: Yes - SKIN BASAL CELL Hx Gastrointestinal Problems: Yes - GERD Hx Neurological Problems: No Review of Systems All Other Systems: negative except mentioned in HPI Physical Exam Vital Signs Date Time Temp Pulse Resp B/P (MAP) Pulse Ox O2 Delivery O2 Flow Rate FiO2 01/30/20 08:31 98.4 68 17 125/53 (77) 95 Room Air Sp02 EP Interpretation: reviewed, normal General Appearance: no apparent distress, alert, GCS 15, non-toxic Head: normocephalic, atraumatic Eyes: bilateral eye normal inspection, bilateral eye PERRL ENT: hearing grossly normal, normal pharynx, no angioedema, normal voice Neck: full range of motion, supple/symm/no masses Respiratory: chest non-tender, lungs clear, normal breath sounds, speaking full sentences Cardiovascular #1: regular rate, rhythm, no edema Gastrointestinal: normal bowel sounds, non tender, soft, non-distended, no guarding, no rebound Rectal: deferred Genitourinary: normal inspection, no CVA tenderness Musculoskeletal: normal range of motion Neurologic: exercise teacher III-XII nml as tested, oriented x3 Psychiatric: no suicidal/homicidal ideation Skin: other - Erythematous rash to abdomen chest and bilateral upper extremities with some excoriations no warmth to touch no swelling no tenderness to palpation Lymphatic: no adenopathy Medical Decision Making Diagnostic Impression: Primary Impression: Dermatitis ER Course Patient treated with Benadryl, prednisone and topical antifungal cream, specifically ketoconazole. After discussing risks and benefits of further diagnostics, treatment plans, as well as indications for and risks of admission , the patient is agreeable to being discharged home. I have explained that their evaluation and treatment in the emergency department today is an important step towards them achieving better health but that their evaluation today is not intended to replace further evaluation and treatment by a physician in their local clinic. I have explained that while the current findings suggest no immediate life threatening emergency they will require further evaluation and treatment by a physician of their choice in their area. They understand that it will be necessary for them to review the final reports of their ED visit with their clinic physician. We have reviewed indications for return to the Emergency Department. I have explained that additional time may need to pass and/or additional testing as an outpatient may be necessary before a definitive diagnosis can be made. They tell me they are willing to follow up as instructed within the timeframe I recommend. They appear to understand what we discussed. Additionally they understand that if they are unable to be seen by an outpatient physician they are welcome, and in fact should, return to the Emergency Department for a repeat evaluation. The patient is stable at time of discharge. Last Vital Signs Date Time Temp Pulse Resp B/P (MAP) Pulse Ox O2 Delivery O2 Flow Rate FiO2 01/30/20 08:31 98.4 68 17 125/53 (77) 95 Room Air Disposition: HOME, SELF-CARE Condition: Stable Scripts Ketoconazole (Ketoconazole) 15 Gm Cream..g. 1 APPLIC TOPIC BID for 14 Days, APPLIC Prov: Chiqui Chaudhari M.D. 01/30/20 Prednisone* (PREDNISONE*) 20 Mg Tablet 40 MG ORAL DAILY, #5 TAB Prov: Chiqui Chaudhari M.D. 01/30/20 Diphenhydramine HCl (Benadryl) 25 Mg Capsule 25 MG PO TID for rash, #30 CAP Prov: Chiqui Chaudhari M.D. 01/30/20 Referrals: [facility] Patient Instructions: Rash, [id number] Additional Instructions: The patient was provided with discharge instructions, notified to follow-up with a primary care doctor and or specialist in the next 24-48 hours, and to return to the ED if they have worsening of their symptoms. Please note that this report is being documented using [employer] technology. This can lead to erroneous entry secondary to incorrect interpretation by the dictating instrument. Chiqui Chaudhari M.D. Jan 30, 2020 08:37
[2020-01-30 08:44] VITALS: BP 122/53
[2020-01-30 08:48] VITALS: BP 115/57
== END 2020-01-30 08:50 | disposition home or self-care (01) ==
LOC: EMR 08:46
DX: L30.9 Dermatitis, unspecified (principal); Z88.2 Allergy status to sulfonamides; J44.9 Chronic obstructive pulmonary disease, unspecified; E03.9 Hypothyroidism, unspecified; Z85.828 Personal history of other malignant neoplasm of skin; K21.9 Gastro-esophageal reflux disease without esophagitis
CPT/HCPCS: 99282; J7512

== ENCOUNTER 2020-03-03 20:33 | Emergency (ER) | payer MEDICARE, OTHER ==
[~2020-03-03] VITALS: Ht 160 cm; Wt 83.9 kg
[~2020-03-03 20:33] MED LIST changes: +BENADRYL25 M3 PO; +NIZORAL 2% C1 APPLIC TOPIC
[2020-03-03 20:45] VITALS: BP 122/68
--- NOTE | 2020-03-03 20:45 | NUR ---
ED Nurse Note: pt walked into ED from home c/o diarrhea for 2 days and noticied blood in stool today. Pt denies n/v, fevers, chills. Pt is AAOx4. No acute distress noted, breathing even and unlabored. Vitals stable as documented.
[2020-03-03 21:03] LABS: APPEARANCE,URINE CLEAR; BILIRUBIN, URINE NEGATIVE (NEGATIVE); GLUCOSE, URINE (UA) NEGATIVE (NEGATIVE); KETONES,URINE NEGATIVE (NEGATIVE); LEUKOCYTE ESTERASE ,URINE 1+ (NEGATIVE); NITRITE,URINE NEGATIVE (NEGATIVE); PH,URINE 5 (4.5-8.0); PROTEIN,URINE NEGATIVE (NEGATIVE); UROBILINOGEN,URINE NORMAL MG/DL (0.0-1.0)
[2020-03-03 21:06] LABS: COLOR,URINE YELLOW
--- NOTE | 2020-03-03 21:06 | NUR ---
ED Nurse Note: blood sent to lab
--- NOTE | 2020-03-03 21:06 | NUR ---
ED Nurse Note: pt down to CT via gurisra accompanied by CT staff in stable condition
[2020-03-03 21:15] LABS: BASOPHILS % (AUTO) 1.4 % (0.0-2.0); EOSINOPHILS % (AUTO) 5.1 % (0.0-3.0); HEMATOCRIT 38.9 % (37.0-47.0); LYMPHOCYTES % (AUTO) 32.6 % (20.0-45.0); MEAN CORPUSCULAR VOLUME 93 FL (80-99); PLATELET COUNT 240 K/UL (150-450); RED BLOOD COUNT 4.18 M/UL (4.20-5.40); RED CELL DISTRIBUTION WIDTH 12.5 % (11.6-14.8); WHITE BLOOD COUNT 8.6 K/UL (4.8-10.8)
--- NOTE | 2020-03-03 21:16 | NUR ---
ED Nurse Note: pt back from CT in stable condition
[2020-03-03 21:26] LABS: INR 0.9 (0.9-1.1)
--- NOTE | 2020-03-03 21:31 | Diagnostic Imaging Report ---
EXAM: CT Abdomen and Pelvis Without Intravenous Contrast CLINICAL HISTORY: ABD PAIN TECHNIQUE: Axial computed tomography images of the abdomen and pelvis without intravenous contrast. CTDI is 12.1 mGy and DLP is 631.5 mGy-cm. One or more of the following dose reduction techniques were used: automated exposure control, adjustment of the mA and/or kV according to patient size, use of iterative reconstruction technique. Coronal and sagittal reformatted images were created and reviewed. COMPARISON: 12/01/15 FINDINGS: Limitations: Study limited due to lack of IV contrast. Lung bases: Unremarkable. No mass. No consolidation. ABDOMEN: Liver: See below. Gallbladder and bile ducts: Unremarkable. No calcified stones. No ductal dilation. Pancreas: Unremarkable. No ductal dilation. Spleen: Unremarkable. No splenomegaly. Adrenals: Unremarkable. No mass. Kidneys and ureters: Unremarkable. No obstructing stones. No hydronephrosis. Stomach and bowel: Unremarkable. No obstruction. No mucosal thickening. PELVIS: Appendix: No findings to suggest acute appendicitis. Bladder: Unremarkable. No stones. Reproductive: Left adnexal 3.3 cm cystic mass, unchanged since prior study, likely benign given the liver time. No further follow-up required. Hysterectomy. ABDOMEN and PELVIS: Intraperitoneal space: Unremarkable. No free air. No significant fluid collection. Bones/joints: Unchanged T12 compression fracture. No dislocation. Soft tissues: Unremarkable. Vasculature: Unremarkable. No abdominal aortic aneurysm. Lymph nodes: Unremarkable. No enlarged lymph nodes. IMPRESSION: 1. Study limited due to lack of IV contrast. 2. No acute abnormality definitively identified to account for patient presentation. 3. Left adnexal 3.3 cm cystic mass, unchanged since prior study, likely benign given the liver time. No further follow-up required. 4. Unchanged T12 compression fracture. 5. Hysterectomy.
[2020-03-03 21:38] LABS: ANION GAP 9 mmol/L (5-15); BLOOD UREA NITROGEN 26 mg/dL (7-18); CALCIUM 9.1 MG/DL (8.5-10.1); CARBON DIOXIDE 27 MMOL/L (21-32); CHLORIDE 101 MMOL/L (98-107); CREATININE 0.8 MG/DL (0.55-1.30); POTASSIUM 4.2 MMOL/L (3.5-5.1); SODIUM 137 MMOL/L (136-145)
[2020-03-03 21:42] LABS: ALANINE AMINOTRANSFERASE 12 U/L (12-78); ALBUMIN 3.7 G/DL (3.4-5.0); ALBUMIN/GLOBULIN RATIO 1.3 (1.0-2.7); ALKALINE PHOSPHATASE 102 U/L (46-116); ASPARTATE AMINO TRANSFERASE 18 U/L (15-37); BILIRUBIN,TOTAL 0.2 MG/DL (0.2-1.0)
--- NOTE | 2020-03-03 21:53 | Emergency Room Report ---
History of Present Illness General Chief Complaint: Gastrointestinal Bleed Source: Patient Present Illness HPI 70-year-old female presents with diarrhea and rectal bleeding x1 prior to arrival. Only endorses one episode of rectal bleeding when she wiped that resolved. Denies anorexia, nausea, vomiting, chest pain, SOB, dysuria, flank pain, abdominal pain/back pain, weakness, recent travel, antibiotic use, recent sick contacts, or international travel or other symptoms. States she was supposed to get a colonoscopy last week, however her insurance messed up the authorization and now she has to wait another 1 to 2 weeks for her colonoscopy with her primary care doctor. The patient's symptoms were gradual onset, severity was moderate, duration since 1 day Quality: Bright red bleeding Past medical history: Left adnexal cyst Past surgical history: Partial hysterectomy, right ankle orthopedic surgery Smoking: Denies Alcohol use: Denies Drug use: Denies Review of systems: CONST: No fevers or chills, No night sweats PULMONARY: No productive cough, No shortness of breath CARDIAC: No chest pain, No palpitations GI: No vomiting, No diarrhea , No melena_or_BRBPR : No dysuria, No hematuria, No discharge NEURO: No new_focal_weakness_or_numbness, No confusion, No vision changes 14 point Review of Systems is otherwise negative except per HPI Physical Exam: GENERAL: Awake_alert_ nontoxic, no acute distress Spo2 99% on RA -normal EYES: Extraocular muscles are intact. Conjunctivae clear. Lids without swelling ENT: External nose and ear normal_in_appearance. Oropharynx clear. Head_atraumatic, Moist_oral_mucosa NECK: No JVD. No meningismus. No thyromegaly. Supple. Trachea midline RESP: Normal respiratory effort. Symmetric rise. No stridor. Clear_to_auscultation_No_rales_No_wheezes CARDIAC: Regular rate and regular rhytm. No_significant pedal edema. ABDOMEN: Soft. Nondistended. Nontender_No_rebound_or_guarding. RECTAL Normal tone and sensation, light brown stool, no melena or blood. Chaperoned with nurse at bedside MSK: Normal muscle tone, without rigidity. Extremities without asymmetric deformity or swelling. SKIN: Warm and dry. No visible cyanosis or pallor NEUROLOGIC: Alert, oriented x3. Motor_and_sensation_grossly_intact. No truncal ataxia. Gait_normal Psych: Normal mood and affect, normal judgment and insight - COORDINATION OF CARE Case was discussed with: Patient Any labs and imaging that were ordered were interpreted as part of the medical decision making: Medical Decision Making/Plan: Differential diagnosis includes diverticulosis, diverticulitis, cholecystitis, choledocholithiasis, hepatitis, small bowel obstruction, volvulus, AAA, pancreatitis, atypical appendicitis, gastroparesis, gastritis, peptic ulcer disease, among others. Patient is well appearing with stable vital signs. Abdominal exam is non peritoneal with no guarding or rebound. Labs show no acute anemia or evidence of hemolysis. Hgb is at baseline level. No hemodynamic instability. CT scan is negative for acute surgical pathology, colitis, or diverticulitis. She is not on blood thinner. Doubt occult bleed. Rectal is negative for blood. CT incidentally found L adnexal cyst. Patient is aware of this and following up with her OBGYN who said they will just monitor it. Also found compression fracture that she is already aware of and states is chronic. Patient is afebrile, without any significant tenderness in the RUQ, and a negative [place] sign. The patients presentation does not appear to be consistent with acute cholecystitis and thus definitive imaging to rule it out was not pursued. Patient has set up for outpatient colonoscopy. The patients symptoms significantly improved, exam upon discharge revealed a benign abdomen without any surgical or peritoneal signs , and tolerating oral fluids. The patient appears stable for discharge with abdominal_recheck_in_24_hours, and understand to return to the ED immediately if symptoms change or worsen. DC with cipro Allergies: Coded Allergies: SULFA (SULFONAMIDE ANTIBIOTICS) (Verified Allergy, Intermediate, rash, 08/09/12) COVID-19 Screening Contact w/high risk pt: No Experienced COVID-19 symptoms?: No COVID-19 Testing performed PERSONAL VEHICLE ADVISOR: No Nursing Documentation-PMH Hx Asthma: Yes Hx COPD: Yes Hx Diabetes: Yes - HYPOTHYROIDISM Hx Cancer: Yes - SKIN BASAL CELL Hx Gastrointestinal Problems: Yes - GERD Hx Neurological Problems: No Physical Exam Vital Signs Date Time Temp Pulse Resp B/P (MAP) Pulse Ox O2 Delivery O2 Flow Rate FiO2 03/03/20 20:37 98.1 78 18 124/64 (84) 99 Room Air Sp02 EP Interpretation: reviewed, normal Medical Decision Making Diagnostic Impression: Primary Impression: Rectal bleeding Additional Impressions: Diarrhea Adnexal cyst Compression fracture EKG Diagnostic Results Troponin ordered: Yes When was troponin ordered?: Mar 03, 2020 EKG Time: 21:00 Rate: normal ASA given to the pt in ED: No - no acs Rhythm Strip Diag. Results Rhythm Strip Time: 20:37 EP Interpretation: yes Rate: 78 Rhythm: NSR, no PVC's, no ectopy CT/MRI/US Diagnostic Results CT/MRI/US Diagnostic Results : Impression CT Abdomen Pelvis WO Contrast EXAM: CT Abdomen and Pelvis Without Intravenous Contrast CLINICAL HISTORY: ABD PAIN TECHNIQUE: Axial computed tomography images of the abdomen and pelvis without intravenous contrast. CTDI is 12.1 mGy and DLP is 631.5 mGy-cm. One or more of the following dose reduction techniques were used: automated exposure control, adjustment of the mA and/or kV according to patient size, use of iterative reconstruction technique. Coronal and sagittal reformatted images were created and reviewed. COMPARISON: 12/01/15 FINDINGS: Limitations: Study limited due to lack of IV contrast. Lung bases: Unremarkable. No mass. No consolidation. ABDOMEN: Liver: See below. Gallbladder and bile ducts: Unremarkable. No calcified stones. No ductal dilation. Pancreas: Unremarkable. No ductal dilation. Spleen: Unremarkable. No splenomegaly. Adrenals: Unremarkable. No mass. Kidneys and ureters: Unremarkable. No obstructing stones. No hydronephrosis. Stomach and bowel: Unremarkable. No obstruction. No mucosal thickening. PELVIS: Appendix: No findings to suggest acute appendicitis. Bladder: Unremarkable. No stones. Reproductive: Left adnexal 3.3 cm cystic mass, unchanged since prior study, likely benign given the liver time. No further follow-up required. Hysterectomy. ABDOMEN and PELVIS: Intraperitoneal space: Unremarkable. No free air. No significant fluid collection. Bones/joints: Unchanged T12 compression fracture. No dislocation. Soft tissues: Unremarkable. Vasculature: Unremarkable. No abdominal aortic aneurysm. Lymph nodes: Unremarkable. No enlarged lymph nodes. IMPRESSION: 1. Study limited due to lack of IV contrast. 2. No acute abnormality definitively identified to account for patient presentation. 3. Left adnexal 3.3 cm cystic mass, unchanged since prior study, likely benign given the liver time. No further follow-up required. 4. Unchanged T12 compression fracture. 5. Hysterectomy. Last Vital Signs Date Time Temp Pulse Resp B/P (MAP) Pulse Ox O2 Delivery O2 Flow Rate FiO2 03/03/20 20:45 98.1 78 18 122/68 99 Room Air Disposition: HOME, SELF-CARE Admit Decision Time: 22:10 Condition: Stable Scripts Omeprazole (OMEPRAZOLE) 10 Mg Capsule.dr 10 MG ORAL DAILY for Gerd, #30 CAP 0 Refills Prov: Danna Pena D.O. 03/03/20 Ondansetron Odt* (ZOFRAN ODT*) 4 Mg Tab.rapdis 4 MG BC EVERY 6 HOURS PRN for Nausea & Vomiting, #10 TAB 0 Refills Prov: Danna Pena D.O. 03/03/20 Ciprofloxacin Hcl* (CIPROFLOXACIN HCL*) 500 Mg Tablet 500 MG ORAL Q12H, #14 TAB 0 Refills Prov: Danna Pena D.O. 03/03/20 Referrals: [facility],REFERRING (PCP) Additional Instructions: Instructions for patient/sales force administrator: Follow up with your physician in 1-2 days. Follow-up with your doctor sooner if your condition requires a more timely clinical reevaluation. Return to the emergency department immediately if you feel that your condition is worsening or if you have any new or concerning symptoms. Review your discharge instructions and take any prescriptions given as instructed. [facility] PROVIDES FREE OR LOW-COST HEALTH SERVICES TO PEOPLE WHO CAN SHOW PROOF THAT THEY LIVE IN [facility]. TO FIND MORE CLINICS PARTNERED WITH THE [facility] TO PROVIDE SERVICE, PLEASE CALL . The evaluation of your abdominal pain today has not led to a clear diagnosis. Your physician still has concerns regarding your condition. Although dangerous conditions such as appendicitis do not appear likely at this time point, there is always some risk, especially if it is early (just beginning). Many conditions may not be discovered on initial testing. These should become more apparent with a reevaluation within 12-24 hours. The earlier these conditions are discovered and treated, the more effective the treatment can be. Therefore, you must come back to the ER and be reevaluated. Your signature below signifies your understanding of these concerns and your willingness to return within 12-24 hours for a reevaluation. As always, if you feel your condition is getting worse at any time before 12-24 hours, please return immediately. You were seen in the emergency room for abdominal pain. Your exam suggested there was no evidence for an emergent condition at this time. Return to the ER for: fevers, worsening pain, bloody stool / diarrhea, vomiting, or any other concerning symptoms. Remember that examination and testing performed in the emergency department is not a comprehensive evaluation for all medical conditions and does not replace the need to follow up with a primary care doctor. In the emergency department, we are only able to to evaluate your symptoms in their current condition, but symptoms may change or worsen. Although you were felt safe to be discharged today, if your symptoms persist or change you need to be reevaluated by your regular / primary doctor as soon as possible- if you are unable to make an ap pointment with your regular doctor, please come back to this ER to be reevaluated. Danna Pena D.O. Mar 03, 2020 21:53
[2020-03-03] MEDS ORDERED: CIPROFLOXACIN500 M2 ORAL (22:07)
[2020-03-03] MEDS ORDERED: ONDANSETRON ODT4 MG BC (22:07)
[2020-03-03] MEDS ORDERED: OMEPRAZOLE10 M1 ORAL (22:07)
[2020-03-03 22:10] VITALS: BP 117/73
--- NOTE | 2020-03-03 22:10 | NUR ---
ER DISCHARGE NOTE: Patient is cleared to be discharged per ERMD, pt is aox4, on room air, with stable vital signs. pt was given dc and paper prescription with instructions to f/u with PMD for colonoscopy, pt was able to verbalize understanding, pt id band and iv site removed without complications. pt is able to ambulate with steady gait. pt took all belongings.
== END 2020-03-03 22:10 | disposition home or self-care (01) ==
LOC: EMR 21:15
DX: K62.5 Hemorrhage of anus and rectum (principal); R19.7 Diarrhea, unspecified; N83.8 Other noninflammatory disorders of ovary, fallopian tube and broad ligament; S22.080G Wedge compression fracture of T11-T12 vertebra, subsequent encounter for fracture with delayed healing; J45.909 Unspecified asthma, uncomplicated; J44.9 Chronic obstructive pulmonary disease, unspecified; E11.9 Type 2 diabetes mellitus without complications; E03.9 Hypothyroidism, unspecified; Z85.828 Personal history of other malignant neoplasm of skin; Z88.2 Allergy status to sulfonamides; X58.XXXD Exposure to other specified factors, subsequent encounter; Z79.899 Other long term (current) drug therapy
CPT/HCPCS: 36415; 74176; 80053; 81003; 83690; 84484; 85025; 85610; 85730; 86850; 86900; 86901; 96361; 96374; 99284; J7030; S0028

== ENCOUNTER 2020-04-08 15:01 | Emergency (ER) | payer MEDICARE, OTHER ==
[~2020-04-08] VITALS: Ht 160 cm; Wt 87.1 kg
[~2020-04-08 15:01] MED LIST changes: +CIPROFLOXACIN500 M2 ORAL; +OMEPRAZOLE10 M1 ORAL; +ONDANSETRON ODT4 MG BC
[2020-04-08 15:18] VITALS: BP 125/67
[2020-04-08] MEDS ORDERED: Ketorolac 30mg Inj IM ONE (15:45)
[2020-04-08] MEDS ORDERED: Methocarbamol 750mg tab ORAL ONE (15:45)
--- NOTE | 2020-04-08 15:55 | Diagnostic Imaging Report ---
Indication: Knee pain Technique: 3 views of the left knee Comparison: None Findings: No acute fracture is identified. There are degenerative changes with severe narrowing of the medial compartment joint space with subchondral sclerosis and sizable marginal osteophytes. Smaller osteophytes are noted at the tibial spine. There are some small osteophytes at the patellofemoral compartment. Trace suprapatellar joint effusion. No radiopaque foreign body. IMPRESSION: Degenerative changes, most pronounced at the medial compartment. No acute fracture.
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
[2020-04-08] MEDS ORDERED: ROBAXIN-500MG ORAL (16:05)
[2020-04-08] MEDS ORDERED: VOLTAREN100 G1 TP (16:05)
[2020-04-08 16:25] VITALS: BP 130/71
--- NOTE | 2020-04-08 16:25 | NUR ---
ER DISCHARGE NOTE: Patient is cleared to be discharged per ERPA, pt is aox4, on room air, with stable vital signs. pt was given dc and prescription instructions, pt was able to verbalize understanding, pt id bandremoved. pt is able to ambulate with steady gait. pt took all belongings.
== END 2020-04-08 16:25 | disposition home or self-care (01) ==
LOC: EMR 15:36
DX: M17.12 Unilateral primary osteoarthritis, left knee (principal); M76.9 Unspecified enthesopathy, lower limb, excluding foot; J44.9 Chronic obstructive pulmonary disease, unspecified; E03.9 Hypothyroidism, unspecified; K21.9 Gastro-esophageal reflux disease without esophagitis; Z85.828 Personal history of other malignant neoplasm of skin; Z88.2 Allergy status to sulfonamides; Z79.899 Other long term (current) drug therapy
CPT/HCPCS: 73562; 96372; 99283; J1885